=== PATIENT | female | born 1985 | race Two or more races ===

== ENCOUNTER → 2018-10-25 21:00 | Emergency (ER) | payer OTHER ==
[2018-10-25 22:42] VITALS: BP 127/78
--- NOTE | 2018-10-25 22:43 | ED ---
Lower Extremity - HPI Summary HPI Summary: The patient is a 33 year old female who is presenting to the [facility] with a chief complaint right knee laceration. 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 She states that she was playing tennis earlier today and impact a wall with her right knee. She reports of right knee edema and right knee pain. The wound is open and there is bleeding present. The symptoms are aggravated by movement. Symptoms are alleviated by nothing. The pain is rated to be 2/10 in severity. - History of Current Complaint Chief Complaint: EDLacSutureRecheck Stated Complaint: RT KNEE INJURY PER PT Time Seen by Provider: 10/25/18 22:16 Hx Obtained From: Patient Mechanism Of Injury: Other - Ran into a Wall Onset/Duration: Hours Severity Initially: Mild Severity Currently: Mild Pain Intensity: 2 Pain Scale Used: 0-10 Numeric Timing: Constant Location: Is Discrete @ - Right Knee Associated Signs And Symptoms: Positive: Swelling, Knee Pain - Right Aggravating Factor(s): Movement Alleviating Factor(s): Nothing Able to Bear Weight: Yes - Allergies/Home Medications Allergies/Adverse Reactions: Allergies Allergy/AdvReac Type Severity Reaction Status Date / Time No Known Allergies Allergy Verified 10/25/18 21:04 PMH/Surg Hx/FS Hx/Imm Hx Sensory History: Denies: Hx Deafness Opthamlomology History: Denies: Hx Legally Blind EENT History: Denies: Hx Deafness Neurological History: Denies: Hx Dementia Infectious Disease History: No Infectious Disease History: Reports: Traveled Outside the [place] in Last 30 Days - [place] - Family History Family History: FHx reviewed and noncontributory. - Social History Occupation: Student Lives: Dormitory/Roommates Alcohol Use: None Substance Use Type: Reports: None Smoking Status (MU): Never Smoked Tobacco Review of Systems Constitutional: Negative Eyes: Negative ENT: Negative Cardiovascular: Negative Respiratory: Negative Gastrointestinal: Negative Genitourinary: Negative Musculoskeletal: Other - Right Knee pain Positive: Edema - Right Knee Skin: Other - Right knee laceration w/ bleeding Neurological: Negative Psychological: Normal All Other Systems Reviewed And Are Negative: Yes Physical Exam - Summary Physical Exam Summary: Appearance: Well-appearing, Well-nourished, lying in bed comfortable Skin: 1 cm laceration over the right knee Eyes: sclera anicteric, no conjunctival pallor ENT: mucous membranes moist Neck: deferred Respiratory: No signs of respiratory distress Cardiovascular: Appears well perfused, pulses are nml Abdomen: deferred Musculoskeletal: Moving all 4 extremities without obvious discomfort; No associated jaime tenderness Neurological: Awake and alert, mentation is normal, speech is fluent and appropriate Psychiatric: affect is normal, does not appear anxious or depressed Triage Information Reviewed: Yes Vital Signs On Initial Exam: Initial Vitals Temp Pulse Resp BP Pulse Ox 98.3 F 76 16 133/86 98 10/25/18 21:01 10/25/18 21:01 10/25/18 21:01 10/25/18 21:01 10/25/18 21:01 Vital Signs Reviewed: Yes Procedures - Laceration/Wound Repair 1 Location: Other - Right knee Description: Linear Anesthesia: Local Betadine Prep?: Yes Irrigated w/ Saline (ccs): 200 Laceration/Wound Explored: clean Closure: Single Layer Debridement: minimal Suture Type: Nylon - 4O Number of Sutures: 3 Layer Closure?: No Sterile Dressing Applied?: Yes Diagnostics - Vital Signs Vital Signs Temp Pulse Resp BP Pulse Ox 10/25/18 21:01 98.3 F 76 16 133/86 98 - Laboratory Lab Statement: Any lab studies that have been ordered have been reviewed, and results considered in the medical decision making process. Lower Extremity Course/Dx - Course Course Of Treatment: The patient is a 33 year old female who was presenting to the [facility] with chief complaint of right knee laceration s/p impacting a wall while playing tennis. The patient also describes right knee pain, edema and bleeding at the site of the wound. We accomplished a laceration at the site of the wound as stated in the procedure report. The patient will be discharged home with a dx of right knee laceration. - Diagnoses Provider Diagnoses: Laceration of right knee Discharge - Sign-Out/Discharge Documenting (check all that apply): Patient Departure - Discharge Home Patient Received Moderate/Deep Sedation with Procedure: No - Discharge Plan Condition: Good Disposition: HOME Patient Education Materials: Care For Your Stitches (ED), Laceration (ED) Referrals: [facility] [Outside] Additional Instructions: Stitches need to come out in about a week. - Billing Disposition and Condition Condition: GOOD Disposition: Home - Attestation Statements Document Initiated by Scribe: Yes Documenting Scribe: Aric Moon Provider For Whom Scribe is Documenting (Include Credential): Dr. Sajan Mccauley Scribe Attestation: I, Aric Moon, scribed for Dr. Sajan Mccauley on 10/26/18 at 2311. Scribe Documentation Reviewed: Yes Provider Attestation: The documentation as recorded by the scribeAric accurately reflects the service I personally performed and the decisions made by me, Dr. Sajan Mccauley Status of Scribe Document: Viewed
== END | disposition home or self-care (01) ==
LOC: ED 21:00
DX: S81.011A Laceration without foreign body, right knee, initial encounter (principal); W22.01XA Walked into wall, initial encounter; Y93.73 Activity, racquet and hand sports; Y92.312 Tennis court as the place of occurrence of the external cause; Y99.8 Other external cause status
CPT/HCPCS: 12001; 99282